=== PATIENT | male | born 1955 | race Hispanic/Latino ===

== ENCOUNTER 2025-07-09 07:41 | Day surgery (SDC) | payer OTHER, MEDICAID ==
[2025-07-09] VITALS (14 sets, daily range): BP systolic 129–158; BP diastolic 75–90; PULSE 60–95; RESP 15–18; TEMP 97.5–98.1
[~2025-07-09] VITALS: Ht 167.6 cm; Wt 89.8 kg
[2025-07-09] MEDS: 0.9%NACL 1000ML 1,000 ML IV ONE (09:12)
[2025-07-09] MEDS ORDERED: FOLI0.8C PO (09:14)
[2025-07-09] MEDS ORDERED: NAPR-1194 PO ×2 (09:14→09:17)
[2025-07-09] MEDS ORDERED: CLOP75TA32 PO (09:17)
[2025-07-09] MEDS ORDERED: ATOR40TA69 PO (09:17)
[2025-07-09] MEDS ORDERED: METF-444 PO (09:17)
[2025-07-09] MEDS ORDERED: VARE0.03 NS (09:17)
[2025-07-09] MEDS ORDERED: AMIO200T73 PO (09:17)
[2025-07-09] MEDS ORDERED: TAMS-55 PO (09:17)
[2025-07-09] MEDS ORDERED: METO-408 PO (09:17)
== END 2025-07-09 13:02 | disposition home or self-care (01) ==
LOC: DAH 07:41
PROVIDERS: ATTEND Internal Medicine Gastroenterology
DX: Z12.11 Encounter for screening for malignant neoplasm of colon (principal); D12.3 Benign neoplasm of transverse colon; K62.1 Rectal polyp; K22.89 Other specified disease of esophagus; K29.50 Unspecified chronic gastritis without bleeding; K44.9 Diaphragmatic hernia without obstruction or gangrene; I10 Essential (primary) hypertension; I25.10 Atherosclerotic heart disease of native coronary artery without angina pectoris; E78.00 Pure hypercholesterolemia, unspecified; E11.9 Type 2 diabetes mellitus without complications; J44.9 Chronic obstructive pulmonary disease, unspecified; Z88.5 Allergy status to narcotic agent; Z98.890 Other specified postprocedural states; Z79.899 Other long term (current) drug therapy
CPT/HCPCS: 82948 ×2; 43239; 45380; 45385; J7030; J2704; A4620; A4215; J3490